=== PATIENT | male | born 1985 | race Hispanic/Latino ===

== ENCOUNTER 2017-02-15 21:49 | Emergency (ER) | payer SELFPAY ==
[2017-02-15 22:17] VITALS: TEMP 99; BMI 19.3
--- NOTE | 2017-02-15 22:46 | ED PDOC ---
Arrival/HPI - General Chief Complaint: Abnormal Skin Integrity Time Seen by Provider: 02/15/17 22:38 Historian: Patient - History of Present Illness Narrative History of Present Illness (Text): 02/15/17 22:46 Colby Thornton is a 31 year old male, whose past medical history includes shingles, who presents to the Emergency department complaining of burning, pruritic rash to the right ear for the past few days. Patient states symptoms are consistent with previous episodes of shingles and notes he had similar rash 3 times this year. Patient states rash has not spread to face, nose, or eyes. Patient denies any fever, chills, sore throat, cough, wheezing, chest pain, shortness of breath, nausea, vomiting, or any other complaints. Time/Duration: Other (few days) Symptom Onset: Gradual Symptom Course: Unchanged Activities at Onset: Light Context: Home Past Medical History - Provider Review Nursing Documentation Reviewed: Yes - Cardiac Hx Cardiac Disorders: No - Hematological/Oncological Hx Shingles: Yes - Integumentary Hx Dermatological Disorder: No - Psychiatric Hx Substance Use: No Family/Social History - Physician Review Nursing Documentation Reviewed: Yes Family/Social History: Unknown Family HX Smoking Status: Heavy Smoker > 10 Cigarettes Daily Hx Alcohol Use: No Hx Substance Use: No Allergies/Home Meds Allergies/Adverse Reactions: Allergies No Known Allergies Allergy (Verified 08/26/15 13:36) Review of Systems - Physician Review All systems were reviewed & negative as marked: Yes - Review of Systems Constitutional: Normal. absent: Fevers Eyes: Normal ENT: Normal Respiratory: Normal. absent: SOB, Cough Cardiovascular: Normal. absent: Chest Pain Gastrointestinal: Normal. absent: Abdominal Pain, Diarrhea, Nausea, Vomiting Genitourinary Male: Normal. absent: Dysuria, Frequency, Hematuria, Urinary Output Changes Musculoskeletal: Normal. absent: Back Pain, Neck Pain Skin: Rash (+rash to right ear), Pruritis Neurological: Normal. absent: Headache, Dizziness Endocrine: Normal Hemo/Lymphatic: Normal Psychiatric: Normal Physical Exam Vital Signs Reviewed: Yes Vital Signs Temp Pulse Resp BP Pulse Ox 02/16/17 00:34 71 16 121/64 97 02/15/17 22:11 99.0 F 60 18 117/70 100 Temperature: Afebrile Blood Pressure: Normal Pulse: Regular Respiratory Rate: Normal Appearance: Positive for: Well-Appearing, Non-Toxic, Comfortable Pain Distress: None Mental Status: Positive for: Alert and Oriented X 3 - Systems Exam Head: Present: Atraumatic, Normocephalic Pupils: Present: PERRL Extroacular Muscles: Present: EOMI Conjunctiva: Present: Normal Ears: Present: NORMAL TM, Normal Canal, Other (Oozing, vesicular rash to tragus of right ear) Mouth: Present: Moist Mucous Membranes Neck: Present: Normal Range of Motion Respiratory/Chest: Present: Clear to Auscultation, Good Air Exchange. No: Respiratory Distress, Accessory Muscle Use Cardiovascular: Present: Regular Rate and Rhythm, Normal S1, S2. No: Murmurs Abdomen: Present: Normal Bowel Sounds. No: Tenderness, Distention, Peritoneal Signs Upper Extremity: Present: Normal Inspection. No: Cyanosis, Edema Lower Extremity: Present: Normal Inspection. No: Edema Neurological: Present: GCS=15, CN II-XII Intact, Speech Normal Skin: Present: Warm, Dry, Normal Color. No: Rashes Psychiatric: Present: Alert, Oriented x 3, Normal Insight, Normal Concentration Medical Decision Making ED Course and Treatment: 02/15/17 22:46 Impression: 31 year old male complaining of a rash to his right ear for the past few days. Differential Diagnosis included but are not limited to: herpes zoster auricularis Plan: -- Valtrex -- Reassess and disposition Prior Visits: Notes and results from previous visits were reviewed. On 08/26/2015, pt was seen in the Emergency department for rash to right ear. Pt was d/c home on Acyclovir. Progress Notes: 02/16/17 00:20 On reevaluation the patient feels better and is in no acute distress. I have discussed the results and plan with the patient, who expresses understanding. Patient given the opportunity to ask question, all questions were answered and there is agreement with the plan to discharge the patient home with prescription for Valtrex. Patient is stable for discharge. Patient was instructed to follow up with physician/clinic in 1-2 days or return if symptoms persist/worsen or new concerning symptoms arise. - Medication Orders Current Medication Orders: Discontinued Medications Valacyclovir HCl (Valtrex) 500 mg PO BID VARINDER PRN Reason: Protocol Last Admin: 02/15/17 23:06 Dose: 500 mg - Scribe Statement The provider has reviewed the documentation as recorded by the Scribe Rossi Juana Provider Scribe Attestation: All medical record entries made by the Scribe were at my direction and personally dictated by me. I have reviewed the chart and agree that the record accurately reflects my personal performance of the history, physical exam, medical decision making, and the department course for this patient. I have also personally directed, reviewed, and agree with the discharge instructions and disposition. Disposition/Present on Arrival - Present on Arrival Any Indicators Present on Arrival: No History of DVT/PE: No History of Uncontrolled Diabetes: No Urinary Catheter: No History of Decub. Ulcer: No History Surgical Site Infection Following: None - Disposition Have Diagnosis and Disposition been Completed?: Yes Diagnosis: Herpes zoster auricularis Disposition: HOME/ ROUTINE Disposition Time: 00:20 Condition: GOOD Discharge Instructions (ExitCare): Shingles (ED) Prescriptions: valACYclovir [Valtrex] 1 gm PO TID #21 tab Referrals: Bandar Porter MD [Staff Provider] - Follow up with primary Forms: [facility] (French), WORK NOTE
[2017-02-16 00:35] VITALS: BP 121/64; PULSE 71; RESP 16; O2SAT 97
== END 2017-02-16 00:36 | disposition home or self-care (01) ==
LOC: ED 21:49
DX: B02.21 Postherpetic geniculate ganglionitis (principal)

== ENCOUNTER 2017-07-22 10:01 | Emergency (ER) | payer SELFPAY ==
[2017-07-22 10:01] VITALS: BMI 19.3
[2017-07-22 10:20] VITALS: TEMP 98.7; O2SAT 97
--- NOTE | 2017-07-22 10:36 | ED PDOC ---
Arrival/HPI - General Chief Complaint: Abnormal Skin Integrity Time Seen by Provider: 07/22/17 10:30 Historian: Patient - History of Present Illness Narrative History of Present Illness (Text): 07/22/17 10:31 pt p/w + < 1day onset of right ear/tragus region skin rash (consistent with his prior hx of shingles); pt states no inner ear pain, no hearing changes, no headache, no vision changes, no posterior neck pain, no fever/chills/sweats, no cp/sob/palpitations, no abd pain, no n/v, no numbness/tingling; pt states pain from the lesions extends downwards along the right neck and up the right sided scalp region, at most pain is 8-9/10; no fall/trauma/sick contact, no travel; pt has been feeling some stress over the last few weeks pt states no skin blisters noted pt denied other complaints pt is here for further eval PCP: NONE Time/Duration: 24 hours Symptom Onset: Sudden Symptom Course: Worsening Quality: Other (sharp right facial/ear lobe region tenderness) Severity Level: 8, Severe Activities at Onset: Rest Context: Home Past Medical History - Provider Review Nursing Documentation Reviewed: Yes - Travel History Have you recently traveled outside [place] w/in the past 3 mons?: No - Past History Past History: No Previous - Infectious Disease Hx of Infectious Diseases: None - Tetanus Immunization Tetanus Immunization: Up to Date - Cardiac Hx Cardiac Disorders: No - Hematological/Oncological Hx Shingles: Yes - Integumentary Hx Dermatological Disorder: No - Psychiatric Hx Substance Use: No - Anesthesia Hx Anesthesia: No Hx Anesthesia Reactions: No Hx Malignant Hyperthermia: No Family/Social History - Physician Review Nursing Documentation Reviewed: Yes Family/Social History: No Known Family HX Smoking Status: Heavy Smoker > 10 Cigarettes Daily Hx Alcohol Use: Yes Frequency of alcohol use: Socially Hx Substance Use: No Hx Substance Use Treatment: No Allergies/Home Meds Allergies/Adverse Reactions: Allergies No Known Allergies Allergy (Verified 07/22/17 10:15) Review of Systems - Review of Systems Constitutional: Normal Eyes: Normal ENT: Normal Respiratory: Normal Cardiovascular: Normal Gastrointestinal: Normal Genitourinary Male: Normal Musculoskeletal: Normal Skin: Rash, Pruritis, Skin Lesions, Other (right scalp tenderness/right neck mild tenderness) Neurological: Normal Endocrine: Normal Hemo/Lymphatic: Normal Psychiatric: Normal Physical Exam Vital Signs Reviewed: Yes Vital Signs Temp Pulse Resp BP Pulse Ox 07/22/17 11:00 68 16 110/61 07/22/17 10:07 98.7 F 86 19 140/92 H 97 Temperature: Afebrile Blood Pressure: Hypertensive Pulse: Regular Respiratory Rate: Normal Appearance: Positive for: Well-Appearing, Uncomfortable, Other (alert/awake, GCS = 15, oriented x 3, sitting on exam bed, cooperative, follows command with ease) Pain Distress: Other (mild distress due to pain) Mental Status: Positive for: Alert and Oriented X 3 - Systems Exam Head: Present: Atraumatic, Normocephalic Pupils: Present: PERRL, Other (no nystagmus, no photophobia, sclera anicteric; no tearing of b/l eyes noted) Extroacular Muscles: Present: EOMI Conjunctiva: Present: Normal Ears: Present: Normal, NORMAL TM, Normal Canal, Other (right tragus region of the ear noted 2-3 lesions/raised with central vesicular like lesions and base erythema/tender on exam; no expressible discharge/flucutance is noted, no gross bleeding; no bullae/pustules noted; no nikosky's sign, no ulcerations, no petechiae noted). No: TM Bulging Mouth: Present: Moist Mucous Membranes, Normal Teeth, Other (no drooling/stridor , no exudate/lesions, uvula/tongue are midline, intact dentitions, no dysphonia) Pharnyx: Present: Normal Nose (External): Present: Atraumatic Nose (Internal): Present: Normal Inspection Neck: Present: Normal Range of Motion, Trachea Midline, Other (intact ROM, no step off, no midline tenderness, no nuchal rigidity, no meningeal signs). No: MIDLINE TENDERNESS Respiratory/Chest: Present: Clear to Auscultation, Good Air Exchange, Other ( CTA b/l, no w/r/r, no accessory muscle use noted, no tachypenia) Cardiovascular: Present: Regular Rate and Rhythm, Normal S1, S2. No: Murmurs Abdomen: Present: Normal Bowel Sounds, Other (well nourished male, no focal tenderness, no pierson's sign, no mcburney's point tenderness) Back: Present: Normal Inspection, Other (no midline tenderness, no step off). No: CVA Tenderness, Midline Tenderness Upper Extremity: Present: Normal Inspection, Normal ROM, NORMAL PULSES, Neurovascularly Intact, Capillary Refill < 2s Lower Extremity: Present: Normal Inspection, NORMAL PULSES, Normal ROM, Capillary Refill < 2 s, Other (+ ambulatory) Neurological: Present: GCS=15, CN II-XII Intact, Speech Normal Skin: Present: Warm, Rashes (as described above; NO other clusters of lesions noted currently; cap refill < 1sec, no ulcerations, no petechiae) Psychiatric: Present: Alert, Oriented x 3, Normal Insight, Normal Concentration Medical Decision Making ED Course and Treatment: 07/22/17 10:32 Impression: right earlobe rashes i have consider all the differential diagnosis regarding pt's chief medical complaints/clinical findings, including but are not limited to: shingles A/P: shingles - observe - supportive care 07/22/17 10:46 pt is made aware of his medical results pt is encouraged keeping wound clean and dry, not to pop any vesicles pt is encouraged smoking cessation pt is encouraged proper safe hygiene; pt is encouraged avoiding contact with /elderly/very young people for concern for possible transmission of herp zoster to them pt will f/u as directed pt will be discharged home Re-evaluation Time: 10:33 Reassessment Condition: Improving,but remains with symptoms - Medication Orders Current Medication Orders: Discontinued Medications Acyclovir (Zovirax) 800 mg PO ONCE ONE PRN Reason: Protocol Stop: 07/22/17 10:31 Last Admin: 07/22/17 10:52 Dose: 800 mg Disposition/Present on Arrival - Present on Arrival Any Indicators Present on Arrival: No History of DVT/PE: No History of Uncontrolled Diabetes: No Urinary Catheter: No History of Decub. Ulcer: No History Surgical Site Infection Following: None - Disposition Have Diagnosis and Disposition been Completed?: Yes Diagnosis: Shingles Disposition: HOME/ ROUTINE Disposition Time: 10:37 Patient Plan: Discharge Condition: STABLE Discharge Instructions (ExitCare): Shingles (ED) Print Language: DANISH Additional Instructions: Make sure to see your doctor in 1-2 days DRINK PLENTY OF FLUIDS Keep wound/rash clean and dry, DONT squeeze/pop any lesions AVOID /extremely young or old folks (as varicella is extremely virulent) take your medications as prescribed RETURN TO ED IF worse pain, cant breath, persistent vomiting, high fever >101- 102 for hours, altered behavior, unable to urinate, heavy/persistent bleeding, passing out, chest pain, or other medical emergencies Prescriptions: Acyclovir [Zovirax] 800 mg PO 5XD #34 tablet Ibuprofen [Motrin] 400 mg PO TID PRN #30 tab PRN Reason: Pain, Mild (1-3) oxyCODONE/Acetaminophen [Percocet 5/325 mg Tab] 1 tab PO TID PRN #10 tab PRN Reason: Pain, Moderate (4-7) Referrals: PCP,NO [Primary Care Provider] - Follow up with primary Gabriel Sinha MD [Staff Provider] - Follow up with primary [facility] [place] [Outside] - Follow up with primary Forms: [employer] (Estonian)
[2017-07-22 11:01] VITALS: BP 110/61; PULSE 68; RESP 16
== END 2017-07-22 11:00 | disposition home or self-care (01) ==
LOC: ED 10:01
DX: B02.9 Zoster without complications (principal); F17.210 Nicotine dependence, cigarettes, uncomplicated